=== PATIENT | female | born 1990 | race Caucasian/White ===

== ENCOUNTER 2020-01-24 | Day surgery (SDC) | payer MEDICARE, MEDICAID ==
[~2020-01-24] MED LIST: JUNEL 1.5/30 PO; MYRBETRIQ50 MG PO; OXYBUTYNIN CHLO10 MG PO; TRAZODONE100 MG PO
[2020-01-24] MEDS ORDERED: PERCOCET 10/31 COMBO PO (08:50)
== END 2020-01-24 09:19 | disposition home or self-care (01) ==
PROC: 3E0K8GC Introduction of Other Therapeutic Substance into Genitourinary Tract, Via Natural or Artificial Opening Endoscopic (ICD-10-PCS; principal; 2020-01-24)
DX: G83.4 Cauda equina syndrome (principal); N39.41 Urge incontinence; F17.290 Nicotine dependence, other tobacco product, uncomplicated; F45.8 Other somatoform disorders
CPT/HCPCS: J0585; J1100; J1956

== ENCOUNTER 2020-09-04 05:46 | Day surgery (SDC) | payer MEDICARE, MEDICAID ==
[~2020-09-04 05:46] MED LIST changes: +PERCOCET 10/31 COMBO PO
[2020-09-04 08:35] VITALS: BP 106/67
== END 2020-09-04 08:50 | disposition home or self-care (01) ==
LOC: ORM 05:46
PROVIDERS: ATTEND Urology
PROC: 3E0K8GC Introduction of Other Therapeutic Substance into Genitourinary Tract, Via Natural or Artificial Opening Endoscopic (ICD-10-PCS; principal; 2020-09-04)
DX: G83.4 Cauda equina syndrome (principal); B94.1 Sequelae of viral encephalitis; F17.290 Nicotine dependence, other tobacco product, uncomplicated; Z20.828 Contact with and (suspected) exposure to other viral communicable diseases
CPT/HCPCS: J0585; J1956

== ENCOUNTER 2021-05-14 06:17 | Day surgery (SDC) | payer MEDICARE, MEDICAID ==
[~2021-05-14] VITALS: Ht 167.6 cm; Wt 59.0 kg
[~2021-05-14 06:17] MED LIST changes: +BACLOFEN10 MG PO; +VESICARE10 MG PO
[2021-05-14 08:47] VITALS: BP 105/61
== END 2021-05-14 09:10 | disposition home or self-care (01) ==
LOC: ENDO 06:17 → ORM 07:00 → ENDO 09:10 → ORM 09:15
PROVIDERS: ATTEND Urology
PROC: 3E0K8GC Introduction of Other Therapeutic Substance into Genitourinary Tract, Via Natural or Artificial Opening Endoscopic (ICD-10-PCS; principal; 2021-05-14)
DX: R39.81 Functional urinary incontinence (principal); G83.4 Cauda equina syndrome; B94.1 Sequelae of viral encephalitis; F41.9 Anxiety disorder, unspecified; F32.9 Major depressive disorder, single episode, unspecified; G62.9 Polyneuropathy, unspecified; F17.290 Nicotine dependence, other tobacco product, uncomplicated
CPT/HCPCS: J0585; J1956

== ENCOUNTER 2021-10-29 08:10 | Day surgery (SDC) | payer MEDICARE, OTHER ==
[~2021-10-29 08:10] MED LIST changes: +DITROPAN XL5 MG PO; +IRON PO; +[UNRECOGNIZED DRUG - OTHER] PO
[2021-10-29 12:33] VITALS: BP 107/56
== END 2021-10-29 13:05 | disposition home or self-care (01) ==
LOC: ORM 08:10
PROVIDERS: ATTEND Urology
PROC: 3E0K8GC Introduction of Other Therapeutic Substance into Genitourinary Tract, Via Natural or Artificial Opening Endoscopic (ICD-10-PCS; principal; 2021-10-29)
DX: G83.4 Cauda equina syndrome (principal); F41.9 Anxiety disorder, unspecified; F32.A Depression, unspecified; F17.210 Nicotine dependence, cigarettes, uncomplicated
CPT/HCPCS: J0585; J1956